=== PATIENT | male | born 1970 | race Two or more races ===

== ENCOUNTER 2023-02-28 11:49 | Emergency (ER) | payer OTHER ==
[~2023-02-28] VITALS: Ht 177.8 cm; Wt 93.0 kg
[2023-02-28 12:02] VITALS: BP 140/75; TEMP 98.2; O2SAT 98
== END 2023-02-28 13:40 | disposition home or self-care (01) ==
LOC: ER 12:02
DX: M25.531 Pain in right wrist (principal); V89.2XXA Person injured in unspecified motor-vehicle accident, traffic, initial encounter; Y93.89 Activity, other specified; Y92.89 Other specified places as the place of occurrence of the external cause; Y99.8 Other external cause status
CPT/HCPCS: 73110